=== PATIENT | female | born 1980 | race Two or more races ===

== ENCOUNTER 2024-11-14 09:10 | Outpatient (RCR) | payer MEDICAID, SELFPAY ==
--- NOTE | 2024-11-14 09:33 | PT.OIERPT ---
PT OP Initial Eval Patient Information Outpatient Physical Therapy Treatment Date: 11/14/24 Medical Diagnosis: [id number] Treatment Dx #1: L ankle pain Treatment Dx #2: Dec L ankle AROM Start of Care: 11/14/24 Date of Onset: 04/22/24 Smoking Status Smoking Status: Never smoker Initial Assessment Subjective: Pt is 44 yr old greenlandic speaking female who reports L ankle pain s/p non-displaced distal fibula FX last year. It hurts more in the afternoon after being active on her feet doing HH chores and going up/down stairs. She doesn't feel confident when she steps with the L foot. PMH: x1 Pt goal: to walk without pain, to feel more stable Objective: L ankle AROM: Strength: DF: 4 deg 4/5 PF: 30 deg Inversion: unable Eversion: unable TTP: min of lateral foot and ankle Gait: symmetrical Assessment: Pt presents with decreased ROM of L ankle consistent with scar tissue adhesions and adaptive shortening s/p distal fibula FX. Pt requires skilled therapy to meet goals and has fair rehab potential. Short Term and Skilled Nursing Goals 1. Ind with HEP 2. Improved DF to 10 deg and PF to 45 deg 3. Pt will ambulate and do HH chores x60 minutes without L ankle pain 4. Pt will ascend/descend 1 flight of stairs with <=2/10 L ankle pain Treatment Plan ?1. Manual therapy ? 2. Therex ? 3. Modalities as indicated, moist heat, ice, estim Frequency and Duration: 1-2x a week for 12 visits. Will need more authorized visits after 4 Certification Dates: 11/14/24 to 02/10/25 Procedure Charges OP PT Eval Mod Complex 30 minutes: Yes
== END 2024-11-18 23:59 | disposition home or self-care (01) ==
LOC: CPTX 09:10
PROVIDERS: PCP Podiatrist Foot & Ankle Surgery; Referring Provider Podiatrist Foot & Ankle Surgery; Visit Provider Podiatrist Foot & Ankle Surgery
DX: M25.572 Pain in left ankle and joints of left foot (principal); S82.62XD Displaced fracture of lateral malleolus of left fibula, subsequent encounter for closed fracture with routine healing; X58.XXXD Exposure to other specified factors, subsequent encounter
CPT/HCPCS: 97162

== ENCOUNTER 2024-11-20 15:06 | Emergency (ER) | payer MEDICAID, SELFPAY ==
[2024-11-20 15:07] VITALS: BMI 28.3
[2024-11-20 15:47] VITALS: BP 157/91; PULSE 77; RESP 20; TEMP 37.1; O2SAT 97
--- NOTE | 2024-11-20 15:58 | PD.EDBURN ---
ED Smoke Inhal. Burn- RME/HPI General Chief complaint: Burn/Smoke Inhalation Stated complaint: BURN TO RIGHT ARM WITH COOKING OIL Time Seen by Provider: 11/20/24 15:53 Arrival date/time: 11/20/24 15:06 44-year-old female presents emergency department today stating that she obtained a burn to her right forearm today while cooking she burned her self with oil Limitations: no limitations Related Data Home Medications ?Medication ?Instructions ?Recorded ?Confirmed atorvastatin 40 mg tablet 40 mg PO QDAY 10/10/22 10/10/22 omeprazole 20 mg capsule,delayed 20 mg PO QDAY 10/10/22 10/10/22 release sitagliptin phosphate 50 1 tab PO BID 10/10/22 10/10/22 mg-metformin 1,000 mg tablet (Janumet) Previous Rx's ?Medication ?Instructions ?Recorded docusate sodium 100 mg capsule 100 mg PO BID #40 caps 10/14/22 (Colace) hydrocodone 5 mg-acetaminophen 325 1 tab PO Q6H PRN pain (scale score 10/14/22 mg tablet 7-10) #20 tabs ibuprofen 600 mg tablet 600 mg PO Q8H PRN pain (scale 10/14/22 score 4-6) #15 tabs hydrocodone 5 mg-acetaminophen 325 1 tab PO BID PRN pain #10 tabs 04/25/24 mg tablet ibuprofen 600 mg tablet 600 mg PO Q6H #30 tabs 04/25/24 bacitracin 500 unit/gram topical 1 applic topical TID 7 days #28.4 11/20/24 ointment grams cephalexin 500 mg capsule 500 mg PO BID 7 days #14 caps 11/20/24 hydrocodone 5 mg-acetaminophen 325 1 tab PO BID PRN pain #10 tabs 11/20/24 mg tablet ibuprofen 600 mg tablet 600 mg PO Q6H #30 tabs 11/20/24 Allergies Allergy/AdvReac Type Severity Reaction Status Date / Time codeine Allergy STOMACH Verified 11/20/24 15:07 LORI Review of Systems Review of Systems Systems Reviewed: All systems reviewed, normal except as documented Constitutional Constitutional: Reports system reviewed and no additional complaints, except as documented, Denies fever(s) and Denies headache(s) Eyes Eyes: Reports system reviewed and no additional complaints, except as documented and Denies blurry vision ENT Ears, Nose, Mouth, and Throat: Reports system reviewed and no additional complaints, except as documented, Denies headache(s), Denies nasal congestion and Denies nasal discharge Cardiovascular Cardiovascular: Reports system reviewed and no additional complaints, except as documented, Denies chest pain and Denies dyspnea Respiratory Respiratory: Reports system reviewed and no additional complaints, except as documented, Denies chest congestion, Denies cough and Denies dyspnea Gastrointestinal Gastrointestinal: Reports system reviewed and no additional complaints, except as documented and Denies abdominal pain Integumentary/Breasts Skin/Breast: Reports system reviewed and no additional complaints, except as documented, Denies rash and Reports other (Burn right forearm) Neurologic Neurologic: Reports system reviewed and no additional complaints, except as documented, Reports as per HPI and Denies headache(s) Past Medical History Past Medical History NEUROLOGIC: Negative Neurological Disorders or Seizures CARDIAC: Negative Cardiac Disorders or Congestive Heart Failure RESPIRATORY: Negative Chronic Obstructive Pulmonary Disease (COPD) GASTROINTESTINAL: Positive Gastrointestinal Disorders, Pancreatitis and Gall Bladder Disease; Negative Hepatitis or Colorectal Cancer GENITOURINARY: Negative Genitourinary Disorders, Renal Disease or Prostate Cancer REPRODUCTIVE: Positive Previous Pregnancies; Negative Breast Cancer or Testicular Cancer MUSCULOSKELETAL: Negative Musculoskeletal Disorders, Bone Cancer or Carpal Tunnel Syndrome ENT: Negative Cataracts ENDOCRINE: Positive Endocrine Disorders and Diabetes Mellitus Type 2; Negative Diabetes Mellitus Type 1 HEMATOLOGIC: Negative Blood Disorders or Anemia OTHER HISTORY: Positive Hospitalization (CHILDBIRTH); Negative Autoimmune Disease, Down Syndrome, Developmental Delay, Shingles, Falls, Blood Transfusions, Anesthesia Reactions, Organ Transplant, Chemotherapy, Radiation Therapy, Hyperbaric Therapy, MRSA, VRSA, Vancomycin-Resistant Enterococci, Human Immunodeficiency Virus (HIV), Chicken Pox, Measles, Mumps, Rubella (Macedonian Measles), Pertussis, Clostridium Difficile, Breast Cancer, Cervical Cancer, Colorectal Cancer, Lung Cancer, Ovarian Cancer, Prostate Cancer or Testicular Cancer Family History FAMILY HISTORY: Positive Family Surgery; Negative Family Psychiatric Problems, Family Respiratory Disorders, Family Cardiac Disorders, Family Gastrointestinal Problems, Family Cancer or Family Anesthesia Reaction Surgical History SURGICAL: Positive Abdominal Surgery and Section (one); Negative Cardiac Surgery, Open Heart Surgery, Coronary Artery Bypass Graft, Valve Replacement, Vascular Surgery, Coronary Stent, Cardiac Catheterization, Pacemaker, Angiogram, Auto Implanted Cardiovert Defib, Carotid Endarterectomy, Endocrine Surgery, Thyroidectomy, Ear Surgery, Tympanostomy Tube, Eye Surgery, Nose Surgery, Oral Surgery, Tonsillectomy, Adenoidectomy, Cochlear Implant, Corneal Transplant, Throat Surgery, Tracheostomy, Nephrectomy, Transurethral Resection, Joint Replacement, Amputation, Open Reduction Internal Fixation, Arthroscopy, Neurologic Surgery, Brain Shunt, Mastectomy, Lumpectomy, Hysterectomy, Tubal Ligation or Organ Transplant Social History SMOKING STATUS: Never smoker ED Exam General Limitations: Present no limitations General appearance: Present alert and in no apparent distress Head Head exam: Present atraumatic, normocephalic and normal inspection Eye Eye exam: Present normal appearance, PERRL and EOMI; Absent conjunctival injection ENT ENT exam: Present normal exam, normal oropharynx and mucous membranes moist Neck Neck exam: Present normal inspection, full ROM and trachea midline Chest Chest inspection: Present normal inspection and symmetric chest wall rise Respiratory Respiratory exam: Present normal lung sounds bilaterally Cardiovascular Cardiovascular exam: Present regular rate, normal rhythm and normal heart sounds Abdominal Exam Abdominal exam: Present soft and normal bowel sounds Extremities Exam Extremities exam: Present full ROM and tenderness (Burn right forearm); Absent joint swelling Back Exam Back exam: Present normal inspection and full ROM Neurological Exam Neurological exam: Present alert, oriented X3 and CN II-XII intact Psychiatric Psychiatric exam: Present normal affect and normal mood Skin Skin exam: Present warm, dry, intact and other (Burn right forearm) Course Quality Measures none Orders Category Date Time Status Wound Care NOW Care 11/20/24 15:56 Completed HYDROcodone*/APAP 5/325 [Irving 5/325] Med 11/20/24 15:55 Discontinued 1 tab PO X1 ONE Ketorolac Inj [Toradol Inj] Med 11/20/24 15:55 Discontinued 30 mg IM X1 ONE Tet,Diphth,Pertuss(Acell)-Tdap [Boostrix Vacc] Med 11/20/24 15:55 Discontinued 0.5 ml IMI .ONCE ONE Vital Signs Vital signs: Vital Signs Temperature 98.8 F 11/20/24 15:47 Pulse Rate 77 11/20/24 15:47 Respiratory Rate 20 11/20/24 15:47 Blood Pressure 157/91 H 11/20/24 15:47 Pulse Oximetry (%) 97 11/20/24 15:47 Oxygen Delivery Method Room Air 11/20/24 15:47 O2 saturation 97% room air within normal limits Burn MDM Narrative MDM Narrative:: 44-year-old female presents emergency department today stating that she obtained a burn to her right forearm today while cooking she burned her self with oil On exam patient has burn to her right forearm the burn is not circumferential patient has 2 small blisters patient's batista are both first and second-degree Wound irrigated copiously dressing applied Patient given Toradol and Irving for pain Patient discharged home in no distress to follow-up with primary care doctor in the next 24 to 48 hours and for any worsening symptoms to return to the ER immediately Patient data External records reviewed:: [facility] previous records Clinical information provided by:: patient Social determinants that could affect healthcare access:: none Patient has the following chronic illnesses:: See history How is presenting disease/condition affected by chronic disease/condition?: uneffected by Evaluation data The following diagnostics were reviewed and interpreted by me:: other (specify) (N/A) Lab and/or radiology exams considered but not ordered:: Consider not ordered Interpretation Summary: N/A Medications / Prescriptions Medications or Prescriptions considered but not ordered:: Given Medication administrations:: Medication Administration History Discontinued Medications Hydrocodone Bitart/Acetaminophen (Hydrocodone/Apap 5/325 Tablet) 1 tab PO X1 ONE Stop: 11/20/24 15:56 Last Admin: 11/20/24 16:05 Dose: 1 tab Documented By: ADONAY Diphtheria/Tetanus/Acell Pertussis (Diphth,Pertuss(Acell),Tet Vac 0.5 Ml Vial) 0.5 ml IMi .ONCE ONE Stop: 11/20/24 15:56 Last Admin: 11/20/24 16:05 Dose: 0.5 ml Documented By: ADONAY Ketorolac Tromethamine (Ketorolac Inj 30 Mg/Ml Vial) 30 mg IM X1 ONE Stop: 11/20/24 15:56 Last Admin: 11/20/24 16:09 Dose: 30 mg Documented By: ADONAY Given Consultations Consultation(s) initiated? (list below): No Diagnosis Burn Differential Diagnosis: other (Burn right forearm, abrasion, laceration) Most likely diagnosis given after review of the tests above:: Burn right arm Admission Indicated Admission indicated?: not indicated Admission Request Was there a request for admission?: No Disposition Plan Disposition Plan: Discharge Discharge Attestation Discharge Attestation: The patient and all family members were given an opportunity to ask questions and understood the discharge instructions. Discharge instructions specifically effects, indications for sooner follow up or return to the emergency department, and the expected course of current diagnosis. Patient condition: Stable Discharge Plan Plan Patient Disposition: HOME (Self Care) Disposition Comment: Stable Prescriptions/Referrals Prescriptions/Med Rec: New bacitracin 500 unit/gram ointment 1 applic topical TID 7 Days Qty: 28.4 0RF hydrocodone-acetaminophen 5-325 mg tablet 1 tab PO BID MDD 10 PRN (Reason: pain) Qty: 10 0RF cephalexin 500 mg capsule 500 mg PO BID 7 Days Qty: 14 0RF ibuprofen 600 mg tablet 600 mg PO Q6H Qty: 30 0RF No Action hydrocodone-acetaminophen 5-325 mg tablet 1 tab PO BID MDD 10 PRN (Reason: pain) Qty: 10 0RF ibuprofen 600 mg tablet 600 mg PO Q6H Qty: 30 0RF atorvastatin 40 mg Tablet 40 mg PO QDAY omeprazole 20 mg Capsule,Delayed Release(Dr/Ec) 20 mg PO QDAY Janumet 50-1,000 mg Tablet 1 tab PO BID hydrocodone-acetaminophen 5-325 mg tablet 1 tab PO Q6H MDD 4 PRN (Reason: pain (scale score 7-10)) Qty: 20 0RF docusate sodium [Colace] 100 mg capsule 100 mg PO BID Qty: 40 0RF ibuprofen 600 mg tablet 600 mg PO Q8H PRN (Reason: pain (scale score 4-6)) Qty: 15 0RF Problem List Clinical Impression: Burn of forearm, right Patient/Caregiver Discharge Instructions Education Materials: ED BURN Wound Check [No Infection] Additional Instructions: Please follow up with your primary care doctor in the next 24-48hrs for any worsening symptoms return here immediately Print Language: Macedonian Stand Alone Forms: Tamar Award Info., Patient Portal Info Letter Vaccines Vaccines Given During Stay: TDaP PA/PROOFER APPRENTICE Supervising Physician PA/PROOFER APPRENTICE Supervising Physician: Dr Read
[2024-11-20] MEDS: DIPHTH,PERTUSS(ACELL),TET VAC 0.5 ML VIAL IMi (16:05)
[2024-11-20] MEDS: HYDROcodone/APAP 5/325 TABLET 1 TAB PO (16:05)
[2024-11-20] MEDS: KETOROLAC INJ 30 MG/ML VIAL IM (16:09)
== END 2024-11-20 16:32 | disposition home or self-care (01) ==
PROVIDERS: Emergency Provider Emergency Medicine; PCP Nurse Practitioner Family
DX: T22.211A Burn of second degree of right forearm, initial encounter (principal); Z23 Encounter for immunization; X10.2XXA Contact with fats and cooking oils, initial encounter; Y93.G3 Activity, cooking and baking
CPT/HCPCS: 90471; 90715; 96372; 99283; J1885; A9270

== ENCOUNTER 2024-12-06 17:00 | Outpatient (RCR) | payer MEDICAID, SELFPAY ==
--- NOTE | 2024-11-28 18:06 | PT.ODAYNRPT ---
PT Outpatient Daily Note OP Daily Note Outpatient Physical Therapy Treatment Date: 11/28/24 Visit Reasons: Left foot Subjective: Low pain in the L ankle today but legs are sore with exercises Objective: See F/S for therex Assessment: Pt is deconditioned with therex. Low pain level of L ankle Plan: Continue per POC Length of Time (minutes) of Treatment: 30 Minutes Procedure Charges Therapeutic Exercise 30 minutes: Yes
--- NOTE | 2024-12-06 17:27 | PT.ODAYNRPT ---
PT Outpatient Daily Note OP Daily Note Outpatient Physical Therapy Treatment Date: 12/06/24 Visit Reasons: Left foot Subjective: Low pain in the L ankle today but legs are tired with exercises Objective: See F/S for therex Assessment: Pt is deconditioned with therex. Low pain level of L ankle Plan: Continue per POC Length of Time (minutes) of Treatment: 30 Minutes Procedure Charges Therapeutic Exercise 30 minutes: Yes
== END 2024-12-16 23:59 | disposition home or self-care (01) ==
LOC: CPTX 17:00
PROVIDERS: PCP Podiatrist Foot & Ankle Surgery; Referring Provider Podiatrist Foot & Ankle Surgery; Visit Provider Podiatrist Foot & Ankle Surgery
DX: M25.572 Pain in left ankle and joints of left foot (principal); S82.62XD Displaced fracture of lateral malleolus of left fibula, subsequent encounter for closed fracture with routine healing; X58.XXXD Exposure to other specified factors, subsequent encounter
CPT/HCPCS: 97110